=== PATIENT | male | born 2005 | race Caucasian/White ===

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

== ENCOUNTER 2024-07-15 11:06 | Emergency (ER) | payer BC ==
[~2024-07-15] VITALS: Ht 175.3 cm; Wt 77.8 kg
[2024-07-15 11:09] VITALS: TEMP 97.6
[2024-07-15 11:47] LABS: KETONE, URINE AUTO RFX NEGATIVE (NEGATIVE); LEUKOCYTE ESTERASE UR AUTO RFX NEGATIVE (NEGATIVE); MUCUS, URINE RFX SMALL (NEGATIVE); NITRITE, URINE AUTO RFX NEGATIVE (NEGATIVE); RBC, URINE AUTO RFX 0 /HPF (0-3); SQUAM EPITHELIAL CELL UR AURFX 0 /HPF (0-6); WBC, URINE AUTO RFX 0 /HPF (0-3)
[2024-07-15 12:46] LABS: Trichomonas vaginalis (AMP) NOT DETECTED (NEGATIVE)
[2024-07-15 13:10] LABS: GC DNA AMPLIFICATION NEGATIVE (NEGATIVE)
[2024-07-15 15:25] VITALS: BP 146/83; O2SAT 99
== END 2024-07-15 16:04 | disposition home or self-care (01) ==
LOC: M ED 11:06
DX: N50.819 Testicular pain, unspecified (principal)

== ENCOUNTER 2024-07-20 09:20 | Emergency (ER) | payer BC ==
[~2024-07-20] VITALS: Ht 175.3 cm; Wt 75.8 kg
[2024-07-20 10:35] LABS: KETONE, URINE AUTO RFX NEGATIVE (NEGATIVE); LEUKOCYTE ESTERASE UR AUTO RFX NEGATIVE (NEGATIVE); MUCUS, URINE RFX SMALL (NEGATIVE); NITRITE, URINE AUTO RFX NEGATIVE (NEGATIVE); RBC, URINE AUTO RFX 1 /HPF (0-3); SQUAM EPITHELIAL CELL UR AURFX 0 /HPF (0-6); WBC, URINE AUTO RFX 0 /HPF (0-3)
[2024-07-20] MEDS: KETOROLAC 30 MG/ML 1ML VIAL IM ONE (11:20)
[2024-07-20] MEDS ORDERED: IBUP-1022 PO (11:29)
[2024-07-20 11:34] VITALS: BP 116/69; TEMP 97.6; O2SAT 98
[2024-07-20 12:02] LABS: Trichomonas vaginalis (AMP) NOT DETECTED (NEGATIVE)
[2024-07-20 12:26] LABS: GC DNA AMPLIFICATION NEGATIVE (NEGATIVE)
== END 2024-07-20 11:48 | disposition home or self-care (01) ==
LOC: M ED 09:20
DX: N50.811 Right testicular pain (principal); N50.812 Left testicular pain; Z79.1 Long term (current) use of non-steroidal anti-inflammatories (NSAID)
CPT/HCPCS: 76870; 81001; 87661; 87810; 87850; 93976; 96372; 99283; J1885